=== PATIENT | male | born 1995 | race African-American/Black ===

== ENCOUNTER 2021-12-10 23:52 | Emergency (ER) | payer SELFPAY ==
[2021-12-11] MEDS ORDERED: Ketorolac Tromethamine 30 MG/ML VIAL ONE (00:11)
[2021-12-11] MEDS ORDERED: Acetaminophen 500 MG TAB ONE (00:11)
[2021-12-11 00:27] LABS: #Lymphocytes 1.1 thou/uL (1.20-3.40); #Monocytes 0.8 thou/uL (0.11-0.59); #Neutrophils 8.6 thou/uL (1.40-6.50); %Basophils 0.1 % (0.0-1.0); %Eosinophils 0.2 % (0.0-10.0); %Lymphocytes 10.3 % (21.0-51.0); %Monocytes 7.4 % (0.0-10.0); %Neutrophils 81.9 % (42.0-75.0); Hemoglobin 13.7 g/dL (14.0-18.0); Mean Corpuscular HGB CONC 32.2 g/dL (32.0-36.0); Mean Corpuscular Hemoglobin 25.4 pg (27.0-31.0); Mean Corpuscular Volume 78.9 fL (78.0-98.0); Mean Platelet Volume 8.3 fL (7.4-10.4); Platelet Count 215 thou/uL (130-400); RBC Distribution Width 13.4 % (11.5-14.5); Red Blood Cell (RBC) Count 5.39 mill/uL (4.70-6.10); White Blood Cell (WBC) Count 10.5 thou/uL (4.8-10.8)
[2021-12-11 00:49] LABS: ALT (SGPT) 15 U/L (8-55); AST (SGOT) 20 U/L (5-34); Albumin 4.6 g/dL (3.5-5.0); Alkaline Phosphatase 79 U/L (40-110); Anion Gap 16 mmol/L (10-20); BUN (Urea Nitrogen) 9 mg/dL (8.9-20.6); Bilirubin, Total 0.6 mg/dL (0.2-1.2); Calc. Creatinine Clearance 0 mL/min (70-130); Calcium 10.1 mg/dL (7.8-10.44); Carbon Dioxide 27 mmol/L (22-29); Chloride 99 mmol/L (98-107); Estimated GFR 107; Globulin 4.2 g/dL (2.4-3.5); Glucose 115 mg/dL (70-105); Lipase 49 U/L (8-78); Potassium 3.9 mmol/L (3.5-5.1); Protein, Total 8.8 g/dL (6.0-8.3); Sodium 138 mmol/L (136-145)
== END 2021-12-11 01:57 | disposition home or self-care (01) ==
LOC: ERS 23:52
DX: R07.9 Chest pain, unspecified (principal)
CPT/HCPCS: 71045; 80053; 83690; 84484; 85025; 93005; 96374; J1885